=== PATIENT | female | born 1955 | race Asian ===

== ENCOUNTER 2023-07-11 07:07 | Day surgery (SDC) | payer OTHER ==
[~2023-07-11] VITALS: Ht 160 cm; Wt 61.2 kg
[2023-07-11] MEDS ORDERED: fentaNYL citrate 0.05 MG/ML VIAL ONE (09:01)
[2023-07-11] MEDS ORDERED: MIDAZOLAM 2 MG/2 ML VIAL ONE (09:02)
== END 2023-07-11 10:40 | disposition home or self-care (01) ==
LOC: MDS 07:07 → MMU 07:12 → MDS 10:40
PROVIDERS: ATTEND Internal Medicine Gastroenterology
DX: Z12.11 Encounter for screening for malignant neoplasm of colon (principal); D12.2 Benign neoplasm of ascending colon; D12.0 Benign neoplasm of cecum; K57.30 Diverticulosis of large intestine without perforation or abscess without bleeding; K64.9 Unspecified hemorrhoids; E78.5 Hyperlipidemia, unspecified; M81.0 Age-related osteoporosis without current pathological fracture; Z90.49 Acquired absence of other specified parts of digestive tract; Z79.899 Other long term (current) drug therapy
CPT/HCPCS: 45385; J3010; J2250